=== PATIENT | female | born 1995 | race American Indian/Alaskan Native ===

== ENCOUNTER 2025-05-22 17:30 | Emergency (ER) | payer MEDICAID ==
[~2025-05-22] VITALS: Ht 165.1 cm; Wt 67.9 kg
[2025-05-22 17:59] VITALS: BP 132/63; TEMP 97.9
[2025-05-22] MEDS: LIDOcaine 1% 30ml preserv. free vial IJ STA (20:42)
[2025-05-22 22:05] VITALS: PULSE 68; RESP 15; O2SAT 99
[2025-05-22] MEDS ORDERED: BACI1PAC7 TOP (22:12)
[2025-05-22] MEDS ORDERED: CHLO118M PO (22:12)
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
== END 2025-05-22 22:25 | disposition home or self-care (01) ==
LOC: ER 17:31
DX: S01.511A Laceration without foreign body of lip, initial encounter (principal); Z79.899 Other long term (current) drug therapy; Y04.0XXA Assault by unarmed brawl or fight, initial encounter; Y93.89 Activity, other specified; Y92.89 Other specified places as the place of occurrence of the external cause; Y99.8 Other external cause status
CPT/HCPCS: 12011; 40650; 99282; 99284; A6449